=== PATIENT | male | born 1970 | race Caucasian/White ===

== ENCOUNTER 2024-03-30 11:19 | Emergency (ER) | payer OTHER, SELFPAY ==
[2024-03-30 11:28] VITALS: BP 115/77; PULSE 79; RESP 18; TEMP 36.6; O2SAT 96
--- NOTE | 2024-03-30 11:30 | ED.EYEPROB ---
HPI - Eye Problem General Chief complaint: Eye Problems Stated complaint: RT Eye pain Time Seen by Provider: 03/30/24 11:30 Source: patient, RN notes reviewed and old records reviewed Mode of arrival: ambulatory Limitations: no limitations History of Present Illness HPI Narrative: Patient presents with complaints of foreign body sensation to the right eye. Patient works as a siddiqui, reports that he was walking through the shop when the [place] blew something into his eye. He denies other injury and trauma, voices no other concerns or complaints today. He does state that light makes the pain worse. Nothing has made the pain better except keeping the eye shut. He has not taken anything for his pain. Injury happened just prior to arrival. Related Data Home Medications Medication Instructions Recorded Confirmed lisinopril 10 mg tablet 10 mg PO DAILY 07/08/19 03/30/24 potassium chloride 10 mEq 10 meq PO DAILY 08/27/20 03/30/24 tablet,extended release Allergies Allergy/AdvReac Type Severity Reaction Status Date / Time No Known Allergies Allergy Unknown Verified 03/30/24 11:31 Review of Systems Review of Systems: All systems reviewed & are unremarkable except as noted in HPI and below Constitutional: Constitutional: Reports no additional constitutional complaints Eyes: Eyes: Reports as per HPI and Reports eye pain ENT: Reports system reviewed and no additional complaints, except as documented Cardiovascular: Cardiovascular: Reports no additional cardiovascular complaints Respiratory: Respiratory: Reports no additional respiratory complaints Gastrointestinal: Gastrointestinal: Reports no additional gastrointestinal complaints [facility] Past Medical History Medical History Foot fracture HTN (hypertension) Surgical History Surgical History Hx of appendectomy Family History Family History Mother Diabetes mellitus Acute myocardial infarction Father Hypertension Social History Social History Smoking status: Never smoker Alcohol intake: current Living arrangements: with family Occupation/Education: occupation Gender identity (if verbalized by the patient): Male Comments At the time of my signature, I reviewed and agree with the nursing past medical, surgical, social, and family history. There is no relevant family history pertinent to the patient complaint. Exam Const: General: cooperative, no acute distress, alert and awake Orientation/consciousness: oriented to person, oriented to place and oriented to time HENMT: Head: normal to inspection Eyes: Eyelids: eyelids normal Sclera: scleral abnormality right scleral injection diffuse Cornea: corneas abnormal on the right fluorescein used and abrasion punctate and at the following clock position (8); with no foreign body noted Resp: Effort & Inspection: normal respiratory effort and able to speak in complete sentences Auscultation: clear to auscultation bilaterally, no crackles, no rales, no rhonchi and no wheezes Cardio: Palpation: normal PMI Rate: regular rate Rhythm: regular rhythm Heart sounds: S1 normal heart sound present and S2 normal heart sound present Neuro: General: oriented to person, oriented to place and oriented to time Cranial nerves: Yes CN's II-XII intact bilaterally Psych: Appearance: grossly normal Thought process: Normal thought process present Insight: Good insight present (Psych) Judgement: Good judgement present (Psych) Course Course Level of Care: Express Care Visit Vital Signs Vital signs: Vital Signs Temperature 97.8 F 03/30/24 11:28 Pulse Rate 79 03/30/24 11:28 Respiratory Rate 18 03/30/24 11:28 Blood Pressure 115/77 03/30/24 11:28 Pulse Oximetry 96 03/30/24 11:28
[2024-03-30 11:31] VITALS: BP 115/77; PULSE 79; RESP 18; TEMP 36.6; O2SAT 96
[2024-03-30] MEDS: DACRIOSE EYE IRRIGATION 118 ML BOTTLE AFFCTD EYE (11:45)
[2024-03-30] MEDS: TETRACAINE HCL 0.5% OPHTH SOLN 4 ML BTL AFFCTD EYE (11:45)
[2024-03-30] MEDS: FLUORESCEIN SOD 1 MG/STRIP AFFCTD EYE (11:45)
== END 2024-03-30 12:08 | disposition home or self-care (01) ==
PROVIDERS: Emergency Provider Nurse Practitioner Family; PCP Nurse Practitioner
DX: S05.01XA Injury of conjunctiva and corneal abrasion without foreign body, right eye, initial encounter (principal); X58.XXXA Exposure to other specified factors, initial encounter; Y99.0 Civilian activity done for income or pay; I10 Essential (primary) hypertension
CPT/HCPCS: 99213; A9270; G0463